=== PATIENT | male | born 1995 | race Caucasian/White ===

== ENCOUNTER 2024-11-17 20:50 | Emergency (ER) | payer SELFPAY ==
[2024-11-17] MEDS: Ketorolac 30 MG/ML SDV IM ONE (21:43)
== END 2024-11-17 23:15 | disposition home or self-care (01) ==
LOC: JD.ED 20:50
DX: S82.432A Displaced oblique fracture of shaft of left fibula, initial encounter for closed fracture (principal); Z88.0 Allergy status to penicillin; I10 Essential (primary) hypertension; Z79.899 Other long term (current) drug therapy; F17.200 Nicotine dependence, unspecified, uncomplicated; W06.XXXA Fall from bed, initial encounter
CPT/HCPCS: 73590-26-LT; 73590-LT; 73630-26-LT; 73630-LT; 96372; 99283; J1885